=== PATIENT | female | born 1950 | race Caucasian/White ===

== ENCOUNTER 2023-12-21 19:07 | Emergency (ER) | payer MEDICARE, OTHER ==
[~2023-12-21] VITALS: Ht 152.4 cm; Wt 72.0 kg
[2023-12-21 19:22] VITALS: TEMP 97.9
[2023-12-21 20:59] VITALS: BP 154/94; PULSE 73; RESP 16
[2023-12-21] MEDS ORDERED: HydrOXYzine PAMOATE 50 MG CAPSULE PO ONE (21:00)
[2023-12-21] MEDS ORDERED: POLY17PO47 PO (21:07)
[2023-12-21] MEDS ORDERED: HYDR-4808 PO (21:07)
[2023-12-21] MEDS: HydrOXYzine HCL 25 MG TABLET PO ONE (21:29)
== END 2023-12-21 22:02 | disposition home or self-care (01) ==
LOC: EMS 19:18
DX: F41.9 Anxiety disorder, unspecified (principal); K59.00 Constipation, unspecified; I10 Essential (primary) hypertension
CPT/HCPCS: 99283